=== PATIENT | female | born 1945 | race Caucasian/White ===

== ENCOUNTER 2017-04-26 13:15 | Emergency (ER) | payer MEDICARE, BC ==
[~2017-04-26] VITALS: Ht 157.5 cm; Wt 68.2 kg
[~2017-04-26 13:15] MED LIST: ACET65TA OR; BABY81CH OR; SYNT88TA PO; latanoprost OU
[2017-04-26] MEDS ORDERED: IBUP200C10 PO (13:26)
[2017-04-26] MEDS ORDERED: METOPROLOL TART 25 MG TABLET PO ONE (14:00)
[2017-04-26] MEDS ORDERED: ONDANSETRON 4MG/2ML VIAL (J2405) As Ordered ONE (14:02)
[2017-04-26 14:06] VITALS: BP 133/82
[2017-04-26 14:10] LABS: BASO # 0.1 K/mm3 (0.0-0.2); BASO % 0.7 % (0.0-1.0); EOS # 0.1 K/mm3 (0.0-0.50); EOS % 1.5 % (0.0-3.0); LARGE UNSTAINED CELL # 0.1 K/mm3 (0.0-0.4); LARGE UNSTAINED CELL % 1.3 % (0.0-4.0); LYMPH # 3.2 K/mm3 (1.5-4.5); LYMPH % 37.9 % (24.0-44.0); MEAN CORPUSCULAR HEMOGLOBIN 32.1 pg (27.0-33.0); MEAN CORPUSCULAR VOLUME 91.7 fl (80.0-96.0); MONO # 0.5 K/mm3 (0.0-0.8); MONO % 5.8 % (0.0-5.0); NEUTROPHILS # 4.3 K/mm3 (1.8-7.7); NEUTROPHILS % 52.8 % (36.0-66.0); PLATELET COUNT, AUTOMATED 356 k/mm3 (150-450); RED CELL DISTRIBUTION WIDTH 12.9 % (11.5-14.5); WHITE BLOOD COUNT 8.1 K/mm3 (4.0-10.0)
[2017-04-26] MEDS ORDERED: ONDANSETRON 4MG/2ML VIAL (J2405) IV ONE (14:15)
[2017-04-26 14:18] LABS: INR 1.04
[2017-04-26 14:21] LABS: ANION GAP 10 MEQ/L (8-16); BLOOD UREA NITROGEN 15 MG/DL (7-18); CARBON DIOXIDE LEVEL 27 MEQ/L (21-32); CHLORIDE LEVEL 102 MEQ/L (98-107); CREATININE FOR GFR 0.86 MG/DL (0.55-1.02); FREE T4 1.69 NG/DL (0.76-1.46); GLOMERULAR FILTRATION RATE > 60.0 (>39); GLUCOSE, FASTING 95 MG/DL (83-110); POTASSIUM SERUM 3.6 MEQ/L (3.5-5.1); SODIUM LEVEL 139 MEQ/L (136-145)
[2017-04-26] MEDS ORDERED: SYNT100T PO (14:37)
--- NOTE | 2017-04-26 15:16 | REP ---
REASON: Chest pain. COMPARISON: Multiple, the latest 02/02/2012, also portable. The technique utilized in obtaining the radiograph has magnified the cardiac silhouette and accentuated the interstitial markings. Cardiomediastinal silhouette is unchanged. The cardiac silhouette is accentuated by technique. Mild cardiomegaly is suspected. There is no change in the lung myeers. No acute patchy parenchymal opacities or pleural effusions have developed. IMPRESSION: Stable, chronic changes. Signed by Reji Krause DO 04/26/2017 03:26 P
[2017-04-26] MEDS ORDERED: ELIQ5TAB PO (15:29)
[2017-04-26] MEDS ORDERED: PROT1TAB2 PO (15:29)
[2017-04-26] MEDS ORDERED: ATEN25TA PO (15:29)
[2017-04-26] MEDS ORDERED: LEVO88TA3 PO (15:29)
[2017-04-26] MEDS ORDERED: ISOVUE-370 76% 100ML VIAL (Q9967) As Ordered ONE (15:50)
--- NOTE | 2017-04-26 16:23 | REP ---
Clinical: Chest pain. Technique: Axial contrast enhanced images from the thoracic inlet to the upper abdomen using 100 ml Isovue 370 intravenous contrast material with multiplanar re-formations. Findings: Satisfactory enhancement of the pulmonary vasculature is achieved, but subtle respiratory motion limits evaluation. No obvious, main or first order pulmonary embolus is appreciated. Thoracic aorta heart and pericardium appear normal. The lung meyers demonstrate chronic interstitial changes without consolidation, obvious nodule or mass lesion. No pleural effusion/reaction or pneumothorax. No adenopathy. Tracheobronchial tree is patent. Surrounding musculoskeletal structures demonstrate degenerative changes. Limited upper abdomen demonstrates normal bilateral adrenal glands and suggests left renal cysts. Impression: 1. No definite pulmonary embolus. 2. Normal thoracic aorta and heart/pericardium. 3. Chronic pleuroparenchymal changes without obvious acute process. Signed by Colby Bernard MD 04/26/2017 04:14 P
[2017-04-26] MEDS ORDERED: APIXABAN 5 MG TAB (ELIQUIS) PO ONE (16:30)
[2017-04-26 16:35] VITALS: BP 142/65
--- NOTE | 2017-04-27 07:31 | ECGEPIP ---
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
--- NOTE | 2017-04-28 07:17 | ECGEPIP ---
Stationary ECG Study [facility] - ED Test Date: 2017-04-26 Pat Name: GUILLE COYLE Department: Room: - Gender: F Rn Progressive Care: latia : 1945 Requested By: Tyron Constantino Order Number: [id number] Reading MD: Dali Ram Measurements Intervals [place] Rate: 178 P: [place]: 0 QRS: 78 QRSD: 200 T: 0 QT: 263 QTc: 453 Interpretive Statements PROBABLE ATRIAL FIBRILLATION RVR RIGHT BUNDLE BRANCH BLOCK Electronically Signed On 04-28-2017 7:17:18 EDT by Dali Ram
[2017-05-14] MEDS ORDERED: TYLE325C PO (10:37)
== END 2017-04-26 16:57 | disposition home or self-care (01) ==
LOC: M ED 13:15 → EDBD 13:15 → M ED 14:02
DX: I48.91 Unspecified atrial fibrillation (principal); T38.1X5A Adverse effect of thyroid hormones and substitutes, initial encounter; R11.2 Nausea with vomiting, unspecified; X58.XXXA Exposure to other specified factors, initial encounter; Y92.512 Supermarket, store or market as the place of occurrence of the external cause; E05.00 Thyrotoxicosis with diffuse goiter without thyrotoxic crisis or storm; I45.10 Unspecified right bundle-branch block; Z88.5 Allergy status to narcotic agent
CPT/HCPCS: 71010; 71275; 80048; 82550; 82553; 84439; 84443; 84484; 85025; 85379; 85610; 85730; 93005; 93041; 94760; 96374; 99285; J2405; Q9967

== ENCOUNTER 2017-05-18 13:33 | Day surgery (SDC) | payer MEDICARE, BC ==
[~2017-05-18] VITALS: Ht 157.5 cm; Wt 67.4 kg
[~2017-05-18 13:33] MED LIST changes: +ATEN25TA PO; +ELIQ5TAB PO; +IBUP200C10 PO; +LEVO88TA3 PO; +PROT1TAB2 PO; +SYNT100T PO; +TYLE325C PO
[2017-05-18] MEDS ORDERED: LACTATED RINGER'S 1000 ML IV ONE (14:00)
[2017-05-18] MEDS ORDERED: LR 1,000 ML IV ONE (14:00)
[2017-05-18] MEDS ORDERED: LR 1,000 ML IV SCH ×2 (14:00→18:00)
[2017-05-18] MEDS ORDERED: ceFAZolin SOD 1 GM in D5W MINI-BAG PLUS 50 ML IV ONE (14:00)
[2017-05-18] MEDS ORDERED: LIDOCAINE 1% SDV INJ 30 ML VIAL As Ordered ONE (15:07)
[2017-05-18] MEDS ORDERED: ISOVUE-300 61% 50ML VIAL (Q9967) As Ordered ONE (15:07)
[2017-05-18] MEDS ORDERED: VANCOMYCIN 1000 MG/20 ML VIAL (J3370) As Ordered ONE (15:07)
[2017-05-18] MEDS ORDERED: LIDOCAINE 2% INJ 100 MG/5 ML SDV (FOR ANES.) As Ordered ONE (15:50)
[2017-05-18] MEDS ORDERED: ONDANSETRON 4MG/2ML VIAL (J2405) As Ordered ONE (15:50)
[2017-05-18] MEDS ORDERED: fentaNYL 100 MCG/2 ML INJECTION (J3010) As Ordered ONE (15:50)
[2017-05-18] MEDS ORDERED: PROPOFOL 200 MG/20 ML VIAL As Ordered ONE ×2 (15:50→16:50)
[2017-05-18] MEDS ORDERED: MIDAZOLAM INJ 2 MG/2 ML VIAL (J2250) As Ordered ONE (15:50)
[2017-05-18] MEDS ORDERED: MUPIROCIN 2% OINT 22 GM TUBE As Ordered ONE (16:59)
[2017-05-18] MEDS ORDERED: PERCOCET 5MG/325MG TAB PO PRN (18:00)
[2017-05-18] MEDS ORDERED: ONDANSETRON 4MG/2ML VIAL (J2405) IV PRN (18:00)
[2017-05-18] MEDS ORDERED: fentaNYL 100 MCG/2 ML INJECTION (J3010) IV PRN (18:00)
[2017-05-18 18:30] VITALS: BP 190/78
--- NOTE | 2017-05-18 18:44 | RO ---
DATE OF PROCEDURE: 05/18/2017 PREPROCEDURE DIAGNOSIS: Sick sinus syndrome/tachycardia, bradycardia syndrome. POSTPROCEDURE DIAGNOSIS: Sick sinus syndrome/tachycardia, bradycardia syndrome. FINDINGS: Sick sinus syndrome/tachycardia, bradycardia syndrome. PROCEDURE: Implantation of dual-chamber pacemaker. SURGEON: Claudio Fernandes MD NON PROFIT DIRECTOR: None. ANESTHESIA: Lidocaine 1% local/monitored anesthetic care. SPECIMENS: None. ESTIMATED BLOOD LOSS: Less than 20 mL. No blood products replaced. No drains. No complications. DESCRIPTION OF PROCEDURE: The patient was prepped and draped over the left pectoral region. 3M Ioban film was applied. Lidocaine 1% was used for local anesthetic. A left subclavian venogram was performed using a mixture of 45 mL of nonionic contrast mixed with 15 mL of saline in a 60 mL syringe and a total of 15 mL of that volume was injected through a left antecubital vein and venogram was visualized of the left subclavian vein and axillary vein in real time, which was used in real time to gain percutaneous venous access into the extrathoracic portion of the subclavian vein under fluoroscopic guidance with a micropuncture needle. This was then guidewire exchanged for a guidewire that came with one of the 6-Belgian sheaths. Next, an incision approximately 2-1/2 inches in length was made approximately 1 cm below the entry site of the guidewire and approximately parallel to the left clavicle. The incision was made with a PEAK PlasmaBlade. The PEAK PlasmaBlade was then used to dissect through the fatty layer and the fibrous Roula's fascia. The prepectoral fascia was then from the fibrous Roula's fascia using blunt dissection using two fingers to form a pacemaker pocket in a caudal direction. Next, the guidewire was pulled through the skin into the incision site. next, I used a separate micropuncture needle to get a second venous access, this time with entry at the level of the pectoral muscle and access into the left subclavian vein using the first guidewire already in the vein as a fluoroscopic marker. Next, this was guidewire exchanged for a guidewire that came with the other 6-Belgian sheath. Next, a 6-Belgian peel-away sheath was placed over the more lateral of the guidewires and advanced into the vein and was used for vein access for the ventricle lead. The ventricle lead was placed into the right ventricle and secured somewhere likely low ventricular septum or possibly low RV free wall and was secured with a total of 15 turns. This position was found to be electrically and anatomically satisfactory and no diaphragm stimulation could be palpated on either side at 10 volts high output pacing. The ventricular lead was then secured with the supplied tie-down sleeve after removing the 6-Belgian sheath and secured to the pectoral muscle using two individual sutures consisting of #0 Ethibond. Next, the other 6-Belgian sheath was placed over the more medial of the guidewires and was used for vein access for the right atrial lead. The right atrial lead was placed under fluoroscopic guidance with the help of a preformed J-stylet into the right atrial appendage region and secured with a total of 13 turns. This position was found to electrically and anatomically satisfactory. The J-stylet was removed without difficulty. The atrial lead was then secured to the pectoral muscle using the supplied tie-down sleeves using two individual sutures consisting of #0 Ethibond. Next, another #0 Ethibond suture was placed to the pectoral muscle to serve as a tie-down for the pacemaker pulse generator. The free terminal pins of the atrial and ventricular leads were placed into their respective ports in the header of the pacemaker pulse generator and each one was tightened by tightening the set screws using the hex screwdriver. Next, the excess lead material was coiled underneath the pacemaker pulse generator and placed along with the pacemaker pulse generator into the pacemaker pocket with the pulse generator on top and the excess lead material below. The pulse generator was then secured to the pectoral muscle with the previously placed #0 Ethibond suture to secure it to the pectoral muscle. The deep layer was closed using individual sutures consisting of #2-0 Vicryl. A few additional #4-0 Vicryl sutures were used to help approximate the more superficial layer. Next, the skin was closed using susan. This was followed by covering the incision line with Bactroban ointment and then application of a pressure dressing applied with foam tape. The patient tolerated the procedure well without any immediate complications. The pacemaker pulse generator implanted was a HRBoss [place]ora 8 DR-T with reference number [id number] and serial number [id number]. The right ventricle lead implanted was a [employer] [facility] Sol[place] S 53 with reference number [id number] and serial number [id number]. Final testing in the operating room for the right ventricle lead showed a capture threshold of 0.6 volts at 0.4 ms with R wave amplitude of 11.6 mV and lead impedance of 799 ohms. The right atrial lead implanted was a [employer] [facility] Solia S 45 with reference number [id number] and serial number [id number]. Final testing in the operating room for the right atrial lead showed a capture threshold of 1.0 volts at 0.4 ms with P wave amplitude of 2.9 mV and lead impedance of 526 ohms. These were all tested in bipolar configuration. Copy To: Dr. Connor Mandel
[2017-05-18 19:00] VITALS: BP 156/70
--- NOTE | 2017-05-18 19:34 | REP ---
PORTABLE CHEST: AP portable view of the chest is performed and compared to prior study of 04/26/2017. There is placement of a left dual-lead pace maker with atrial and ventricular leads apparently in good position. There is no pneumothorax. There is mild cardiomegaly. There is some calcification of the thoracic aorta. Scattered interstitial fibrotic changes are seen of the lungs. IMPRESSION: Chronic fibrotic changes. Left dual lead pace maker placed with no pneumothorax. Signed by Hilario Caraballo MD 05/18/2017 08:20 P
--- NOTE | 2017-05-18 19:35 | REP ---
C-ARM view chest: A C-ARM view of the chest is performed during placement of a dual lead pace maker. Atrial and ventricular leads appear to be in good position. 3 minutes and 48 seconds fluoroscopic time utilized. Signed by Hilario Caraballo MD 05/18/2017 08:21 P
[2017-05-18] MEDS ORDERED: SLF 3 ML SYR IV PRN (20:15)
[2017-05-18] MEDS: ASCORBIC ACID 250 MG TAB PO SCH (20:45)
[2017-05-18] MEDS: ATENOLOL 25 MG TAB PO SCH (20:45)
[2017-05-18] MEDS: ACETAMINOPHEN TAB 650MG DOSE (2X325MG) PO PRN (20:45)
[2017-05-18] MEDS: SLF 3 ML SYR IV SCH (20:46)
[2017-05-18 20:54] VITALS: BP 174/88
[2017-05-18 21:57] VITALS: BP 174/78
--- NOTE | 2017-05-18 22:44 | ECGEPIP ---
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 Electronically Signed On 05-18-2017 22:44:32 EDT by Claudio Fernandes
[2017-05-18 23:12] VITALS: BP 141/67
[2017-05-19] MEDS: ACETAMINOPHEN TAB 650MG DOSE (2X325MG) PO PRN (02:13)
[2017-05-19 04:36] VITALS: BP 144/67
[2017-05-19] MEDS ORDERED: LEVOTHYROXINE 88MCG TABLET (0.088 MG) PO SCH (06:00)
[2017-05-19] MEDS: SLF 3 ML SYR IV SCH (06:27)
[2017-05-19 08:00] VITALS: BP 142/65
[2017-05-19 08:57] VITALS: BP 142/65
[2017-05-19] MEDS: ATENOLOL 25 MG TAB PO SCH (08:57)
[2017-05-19] MEDS: ASCORBIC ACID 250 MG TAB PO SCH (08:57)
[2017-05-19] MEDS ORDERED: PANTOPRAZOLE 40MG TAB (PROTONIX) PO SCH (09:00)
[2017-05-19] MEDS ORDERED: PANT40TA2 PO (10:45)
[2017-05-19] MEDS ORDERED: ATEN25TA PO (10:45)
[2017-05-19] MEDS ORDERED: ELIQ5TAB PO (10:45)
[2017-05-19] MEDS ORDERED: PROT1TAB2 PO (10:45)
--- NOTE | 2017-05-19 13:25 | REP ---
TWO VIEW CHEST: Two views of the chest are performed and compared to prior study of 05/18/2017 as well as other prior exams. There is mild bibasilar interstitial fibrotic change. There is no acute infiltrate or pneumothorax. Left dual lead pacemaker appears to be in good position. Heart appears slightly enlarged. Mediastinal silhouette is unremarkable. There are mild degenerative changes of the spine. IMPRESSION: Left dual lead pacemaker. No acute pulmonary disease. Signed by Hilario Caraballo MD 05/19/2017 03:21 P
== END 2017-05-19 12:41 | disposition home or self-care (01) ==
LOC: M SDC 13:33 → M PCU 18:18 → M SDC 05-19 12:41
PROVIDERS: ATTEND Internal Medicine Cardiovascular Disease
DX: I49.5 Sick sinus syndrome (principal); I48.0 Paroxysmal atrial fibrillation; R07.2 Precordial pain; I45.19 Other right bundle-branch block; I44.0 Atrioventricular block, first degree; E03.9 Hypothyroidism, unspecified; M50.30 Other cervical disc degeneration, unspecified cervical region; K21.9 Gastro-esophageal reflux disease without esophagitis; E66.3 Overweight; Z68.26 Body mass index [BMI] 26.0-26.9, adult; Z79.899 Other long term (current) drug therapy; Z79.01 Long term (current) use of anticoagulants; Z88.5 Allergy status to narcotic agent; Z88.8 Allergy status to other drugs, medicaments and biological substances
CPT/HCPCS: 33208; 71010; 71020; 76000; 93005; C1769; C1785; C1898; J0690; J2250; J2405; J3010; Q9967

== ENCOUNTER → 2018-01-25 | Outpatient (CLI) | payer MEDICARE, BC ==
[2018-01-25 10:11] LABS: FREE T4 1.54 NG/DL (0.76-1.46)
== END ==
LOC: M LAB 08:55
DX: E03.9 Hypothyroidism, unspecified (principal)
CPT/HCPCS: 84443

== ENCOUNTER 2018-03-20 08:09 | Emergency (ER) | payer MEDICARE, BC ==
[2018-03-20 09:07] LABS: BASO % 0.4 % (0.0-1.0); EOS # 0.1 10^3/uL (0.0-0.50); EOS % 2.8 % (0.0-3.0); HEMATOCRIT 38.1 % (36.0-47.0); HEMOGLOBIN 12.8 g/dl (12.0-15.5); IMMATURE GRANULOCYTE % 0.2 % (0-3.0); LYMPH # 0.7 10^3/uL (1.5-4.5); LYMPH % 13.6 % (24.0-44.0); MEAN CORPUSCULAR HEMOGLOBIN 29.8 pg (27.0-33.0); MEAN CORPUSCULAR HGB CONC 33.6 g/dl (32.0-36.5); MEAN CORPUSCULAR VOLUME 88.6 fl (80.0-96.0); MONO # 0.5 10^3/uL (0.0-0.8); NEUTROPHILS # 3.7 10^3/uL (1.8-7.7); PLATELET COUNT, AUTOMATED 297 10^3/uL (150-450); RED CELL DISTRIBUTION WIDTH 13.5 % (11.5-14.5); WHITE BLOOD COUNT 5.1 10^3/uL (4.0-10.0)
[2018-03-20 09:27] LABS: ALBUMIN 3.4 GM/DL (3.2-5.2); ALBUMIN/GLOBULIN RATIO 0.79 (1.00-1.93); ALKALINE PHOSPHATASE 93 U/L (45-117); ALT/SGPT 15 U/L (12-78); ANION GAP 9 MEQ/L (8-16); AST/SGOT 20 U/L (7-37); BILIRUBIN,DIRECT 0.1 MG/DL (0.0-0.2); BILIRUBIN,TOTAL 0.5 MG/DL (0.2-1.0); BLOOD UREA NITROGEN 12 MG/DL (7-18); CALCIUM LEVEL 8.9 MG/DL (8.8-10.2); CARBON DIOXIDE LEVEL 27 MEQ/L (21-32); CHLORIDE LEVEL 106 MEQ/L (98-107); CPK CREATINE PHOSPHOKINASE 44 U/L (26-192); CREATININE FOR GFR 0.68 MG/DL (0.55-1.30); GLOMERULAR FILTRATION RATE > 60.0 (>39); GLUCOSE, FASTING 109 MG/DL (70-100); LIPASE 86 U/L (73-393); POTASSIUM SERUM 3.7 MEQ/L (3.5-5.1); SODIUM LEVEL 142 MEQ/L (136-145); TOTAL PROTEIN 7.7 GM/DL (6.4-8.2); TROPONIN I < 0.02 NG/ML (< 0.10)
[2018-03-20 09:33] LABS: CK-MB VALUE MASS < 1.0 NG/ML (<3.6); MB/CK RELATIVE INDEX 2.27 (< OR =4); NT-PRO BNP 111 PG/ML (<125)
== END 2018-03-20 11:06 | disposition home or self-care (01) ==
LOC: M ED 08:09
DX: R00.2 Palpitations (principal); I48.91 Unspecified atrial fibrillation; I45.19 Other right bundle-branch block; E03.9 Hypothyroidism, unspecified; M19.90 Unspecified osteoarthritis, unspecified site; Z95.0 Presence of cardiac pacemaker; I51.7 Cardiomegaly; Z79.01 Long term (current) use of anticoagulants; Z79.899 Other long term (current) drug therapy; Z88.5 Allergy status to narcotic agent
CPT/HCPCS: 71045

== ENCOUNTER → 2018-03-27 | Outpatient (REF) | payer MEDICARE, BC ==
[2018-03-27 21:48] LABS: ANION GAP 6 MEQ/L (8-16); BLOOD UREA NITROGEN 12 MG/DL (7-18); CALCIUM LEVEL 9.3 MG/DL (8.8-10.2); CARBON DIOXIDE LEVEL 29 MEQ/L (21-32); CHLORIDE LEVEL 103 MEQ/L (98-107); CREATININE FOR GFR 0.66 MG/DL (0.55-1.30); FREE T3 2.7 PG/ML (2.2-4.0); FREE T4 1.58 NG/DL (0.76-1.46); GLOMERULAR FILTRATION RATE > 60.0 (>39); GLUCOSE, FASTING 80 MG/DL (70-100); MAGNESIUM LEVEL 2.4 MG/DL (1.8-2.4); POTASSIUM SERUM 4.2 MEQ/L (3.5-5.1); SODIUM LEVEL 138 MEQ/L (136-145)
== END ==
LOC: M SFHCCLAY 10:56
DX: I48.0 Paroxysmal atrial fibrillation (principal); R00.2 Palpitations
CPT/HCPCS: 83735

== ENCOUNTER 2018-07-02 15:01 | Emergency (ER) | payer MEDICARE, BC ==
[2018-07-02 15:46] LABS: BASO % 0.5 % (0.0-1.0); EOS # 0.1 10^3/uL (0.0-0.50); EOS % 1.4 % (0.0-3.0); HEMOGLOBIN 14.1 g/dl (12.0-15.5); IMMATURE GRANULOCYTE % 0.2 % (0-3.0); LYMPH # 2.6 10^3/uL (1.5-4.5); LYMPH % 40.5 % (24.0-44.0); MEAN CORPUSCULAR HEMOGLOBIN 29.9 pg (27.0-33.0); MEAN CORPUSCULAR HGB CONC 34.4 g/dl (32.0-36.5); MONO # 0.5 10^3/uL (0.0-0.8); MONO % 8.4 % (0.0-5.0); NEUTROPHILS # 3.1 10^3/uL (1.8-7.7); PLATELET COUNT, AUTOMATED 334 10^3/uL (150-450); RED BLOOD COUNT 4.71 10^6/uL (4.00-5.40); RED CELL DISTRIBUTION WIDTH 14.9 % (11.5-14.5); WHITE BLOOD COUNT 6.4 10^3/uL (4.0-10.0)
[2018-07-02 15:56] LABS: INR 1.28; PARTIAL THROMBOPLASTIN TIME 35.3 SECONDS (25.4-37.6); PROTHROMBIN TIME 16.2 SECONDS (12.1-14.4)
[2018-07-02 15:58] LABS: ALBUMIN 4.1 GM/DL (3.2-5.2); ALBUMIN/GLOBULIN RATIO 1.03 (1.00-1.93); ALKALINE PHOSPHATASE 67 U/L (45-117); ALT/SGPT 19 U/L (12-78); ANION GAP 15 MEQ/L (8-16); AST/SGOT 16 U/L (7-37); BILIRUBIN,DIRECT 0.1 MG/DL (0.0-0.2); BLOOD UREA NITROGEN 11 MG/DL (7-18); CALCIUM LEVEL 9.8 MG/DL (8.8-10.2); CARBON DIOXIDE LEVEL 20 MEQ/L (21-32); CHLORIDE LEVEL 106 MEQ/L (98-107); CPK CREATINE PHOSPHOKINASE 71 U/L (26-192); GLOMERULAR FILTRATION RATE > 60.0 (>39); GLUCOSE, FASTING 111 MG/DL (70-100); MAGNESIUM LEVEL 2.4 MG/DL (1.8-2.4); PHOSPHORUS LEVEL 2.1 MG/DL (2.5-4.9); POTASSIUM SERUM 3.1 MEQ/L (3.5-5.1); SODIUM LEVEL 141 MEQ/L (136-145); TOTAL PROTEIN 8.1 GM/DL (6.4-8.2); TROPONIN I < 0.02 NG/ML (< 0.10)
[2018-07-02 16:11] LABS: BILIRUBIN,TOTAL 0.5 MG/DL (0.2-1.0); CK-MB VALUE MASS < 1.0 NG/ML (<3.6); FREE T4 1.63 NG/DL (0.76-1.46)
[2018-07-02] MEDS: ONDANSETRON 4MG/2ML VIAL (J2405) IV (16:12)
[2018-07-02] MEDS: NS 500 ML IV (16:13)
[2018-07-02] MEDS: POTASSIUM CHLORIDE 10 MEQ SR TABLET PO (16:23)
== END 2018-07-02 17:35 | disposition home or self-care (01) ==
LOC: M ED 15:01
DX: K29.00 Acute gastritis without bleeding (principal); K52.9 Noninfective gastroenteritis and colitis, unspecified; I10 Essential (primary) hypertension; I25.10 Atherosclerotic heart disease of native coronary artery without angina pectoris; I48.91 Unspecified atrial fibrillation; Z95.0 Presence of cardiac pacemaker; Z79.899 Other long term (current) drug therapy; Z79.01 Long term (current) use of anticoagulants; Z79.890 Hormone replacement therapy; Z88.5 Allergy status to narcotic agent; Z88.8 Allergy status to other drugs, medicaments and biological substances
CPT/HCPCS: J2405

== ENCOUNTER → 2018-08-02 | Outpatient (REF) | payer MEDICARE, BC ==
[2018-08-02 16:43] LABS: HEMATOCRIT 42.2 % (36.0-47.0); HEMOGLOBIN 14.3 g/dl (12.0-15.5); MEAN CORPUSCULAR HEMOGLOBIN 30.9 pg (27.0-33.0); MEAN CORPUSCULAR HGB CONC 33.9 g/dl (32.0-36.5); MEAN CORPUSCULAR VOLUME 91.1 fl (80.0-96.0); PLATELET COUNT, AUTOMATED 357 10^3/uL (150-450); RED BLOOD COUNT 4.63 10^6/uL (4.00-5.40); RED CELL DISTRIBUTION WIDTH 14.3 % (11.5-14.5); WHITE BLOOD COUNT 6.5 10^3/uL (4.0-10.0)
[2018-08-02 17:00] LABS: ANION GAP 6 MEQ/L (8-16); BLOOD UREA NITROGEN 13 MG/DL (7-18); CALCIUM LEVEL 10.2 MG/DL (8.8-10.2); CARBON DIOXIDE LEVEL 30 MEQ/L (21-32); CHLORIDE LEVEL 103 MEQ/L (98-107); CREATININE FOR GFR 0.64 MG/DL (0.55-1.30); FREE T4 1.18 NG/DL (0.76-1.46); GLOMERULAR FILTRATION RATE > 60.0 (>39); GLUCOSE, FASTING 86 MG/DL (70-100); SODIUM LEVEL 139 MEQ/L (136-145)
== END ==
LOC: M SFHCCLAY 12:02
DX: E89.0 Postprocedural hypothyroidism (principal); R53.82 Chronic fatigue, unspecified
CPT/HCPCS: 84443

== ENCOUNTER → 2018-12-25 | Outpatient (CLI) | payer MEDICARE, BC ==
[~2018-12-25] MED LIST changes: -IBUP200C10 PO; +IBUP200C25 PO; +K-TA1TAB PO; +MULTCAP8 PO; +PANT40TA3 PO; +ZOFR4TAB14 PO
[2018-12-25 11:06] LABS: HEMATOCRIT 44.1 % (36.0-47.0); HEMOGLOBIN 14.7 g/dl (12.0-15.5); MEAN CORPUSCULAR HEMOGLOBIN 31.3 pg (27.0-33.0); MEAN CORPUSCULAR HGB CONC 33.3 g/dl (32.0-36.5); PLATELET COUNT, AUTOMATED 348 10^3/uL (150-450); RED BLOOD COUNT 4.69 10^6/uL (4.00-5.40); WHITE BLOOD COUNT 6.7 10^3/uL (4.0-10.0)
[2018-12-25 11:28] LABS: ERYTHROCYTE SEDIMENTATION RATE 5 mm/hr (0-30)
[2018-12-25 11:34] LABS: ALBUMIN 4.2 GM/DL (3.2-5.2); ALT/SGPT 16 U/L (12-78); BILIRUBIN,TOTAL 0.6 MG/DL (0.2-1.0); BLOOD UREA NITROGEN 14 MG/DL (7-18); CARBON DIOXIDE LEVEL 29 MEQ/L (21-32); CHLORIDE LEVEL 102 MEQ/L (98-107); CPK CREATINE PHOSPHOKINASE 45 U/L (26-192); CREATININE FOR GFR 0.67 MG/DL (0.55-1.30); FREE T4 1.33 NG/DL (0.76-1.46); GLOMERULAR FILTRATION RATE > 60.0 (>39); GLUCOSE, FASTING 89 MG/DL (70-100); SODIUM LEVEL 138 MEQ/L (136-145); TOTAL PROTEIN 7.7 GM/DL (6.4-8.2)
== END ==
LOC: M LAB 10:16
PROVIDERS: ATTEND Family Medicine
DX: E03.9 Hypothyroidism, unspecified (principal); M79.10 Myalgia, unspecified site

== ENCOUNTER → 2018-12-30 | Outpatient (CLI) | payer MEDICARE, BC ==
--- NOTE | 2018-12-30 11:43 | REP ---
PA and lateral chest: Comparisons are the PA and lateral chest A 05/19/2017, PA and lateral chest seven 12/26/[address] dated 04/26/2017. The lung meyers are clear but again appear hyperinflated, unchanged. Cardiac size is mildly enlarged, unchanged. There is a dual-chamber pacemaker, unchanged from 05/19/2017. The central adriel appear enlarged. Upon review of the comparison CT, the pulmonary trunk measures 32 mm in diameter. This is compatible with pulmonary hypertension. There is demineralization and mild kyphosis. Impression: There are no acute cardiopulmonary findings. Pacemaker. Chronic hyperinflation. Enlarged central adriel compatible with pulmonary hypertension. The pulmonary trunk measures 32 mm transverse diameter on the 04/26/2017 CT. This is also compatible with pulmonary hypertension. Electronically Signed by Hilario Rios MD 12/30/2018 11:35 A
== END ==
LOC: M SMT 10:31
PROVIDERS: ATTEND Internal Medicine Cardiovascular Disease
DX: R06.00 Dyspnea, unspecified (principal); Z95.0 Presence of cardiac pacemaker; I27.20 Pulmonary hypertension, unspecified

== ENCOUNTER → 2019-02-06 | Outpatient (REF) | payer MEDICARE, BC ==
[2019-02-06 17:06] LABS: FREE T4 1.29 NG/DL (0.76-1.46); THYROID STIMULATING HORMONE 2.74 uIU/ML (0.358-3.740)
== END ==
LOC: M SFHCCLAY 13:33
PROVIDERS: ATTEND Family Medicine
DX: E03.9 Hypothyroidism, unspecified (principal); M79.10 Myalgia, unspecified site
CPT/HCPCS: 84439; 84443; G0463

== ENCOUNTER → 2019-07-24 | Outpatient (CLI) | payer MEDICARE, BC ==
[~2019-07-24] MED LIST changes: +XARE10TA PO
[2019-07-24 17:30] LABS: APPEARANCE, URINE CLOUDY (CLEAR); BACTERIA, URINE AUTO 1+ (NEGATIVE); BILIRUBIN, URINE AUTO NEGATIVE (NEGATIVE); BLOOD, URINE BLOOD 3+ (NEGATIVE); COLOR, URINE YELLOW (YELLOW); GLUCOSE, URINE (UA) AUTO NEGATIVE (NEGATIVE); KETONE, URINE AUTO NEGATIVE (NEGATIVE); LEUKOCYTE ESTERASE, URINE AUTO TRACE (NEGATIVE); NITRITE, URINE AUTO NEGATIVE (NEGATIVE); PROTEIN, URINE AUTO NEGATIVE (NEGATIVE); RBC, URINE AUTO 1 /HPF (0-3); SPECIFIC GRAVITY URINE AUTO 1.004 (1.002-1.035); SQUAMOUS EPITHELIAL CELL UR AU 1 /HPF (0-6); UROBILINOGEN, URINE AUTO 0.2 mg/dL (0.0-2.0); WBC, URINE AUTO 2 /HPF (0-3)
[2019-07-24 17:48] LABS: BLOOD UREA NITROGEN 8 MG/DL (7-18); CALCIUM LEVEL 9.7 MG/DL (8.8-10.2); CARBON DIOXIDE LEVEL 29 MEQ/L (21-32); CHLORIDE LEVEL 103 MEQ/L (98-107); CREATININE FOR GFR 0.68 MG/DL (0.55-1.30); GLOMERULAR FILTRATION RATE > 60.0 (>39); GLUCOSE, FASTING 92 MG/DL (70-100); POTASSIUM SERUM 3.9 MEQ/L (3.5-5.1); SODIUM LEVEL 140 MEQ/L (136-145)
[2019-07-24 17:53] LABS: HEMATOCRIT 45.1 % (36.0-47.0); HEMOGLOBIN 14.8 g/dl (12.0-15.5); MEAN CORPUSCULAR HEMOGLOBIN 31.2 pg (27.0-33.0); MEAN CORPUSCULAR HGB CONC 32.8 g/dl (32.0-36.5); MEAN CORPUSCULAR VOLUME 95.1 fl (80.0-96.0); PLATELET COUNT, AUTOMATED 375 10^3/uL (150-450); RED BLOOD COUNT 4.74 10^6/uL (4.00-5.40); WHITE BLOOD COUNT 6.5 10^3/uL (4.0-10.0)
== END ==
LOC: M SMT 14:19
PROVIDERS: ATTEND Internal Medicine Cardiovascular Disease
DX: R53.83 Other fatigue (principal); I48.0 Paroxysmal atrial fibrillation; R31.9 Hematuria, unspecified

== ENCOUNTER → 2019-07-29 | Outpatient (REF) | payer MEDICARE, BC ==
[2019-07-29 17:18] LABS: FREE T4 1.34 NG/DL (0.76-1.46); THYROID STIMULATING HORMONE 1.59 uIU/ML (0.358-3.740)
== END ==
LOC: M SFHCCLAY 12:28
PROVIDERS: ATTEND Family Medicine
DX: E03.9 Hypothyroidism, unspecified (principal)
CPT/HCPCS: 81002; 84439; 84443; 90682; G0008

== ENCOUNTER → 2019-07-31 | Outpatient (CLI) | payer MEDICARE, BC ==
[~2019-07-31] MED LIST changes: +ISOVUE-370 76% 100ML VIAL (Q9967) As Ordered ONE
--- NOTE | 2019-07-31 19:31 | REP ---
CT of the abdomen and pelvis without and with IV contrast, CT urogram protocol: Comparison is 01/04/2011. There are no right renal calculi. However, there is a 3 mm calculus in the distal right ureter approximate 4 cm above the urinary bladder, not present previously. This calculus appears nonobstructive. There is no right hydroureter or hydronephrosis. There is no right perinephric stranding. There are no bladder calculi. There is a bladder diverticulum posterolaterally on the right, unchanged. There are nonobstructive calculi at the lower pole of the left kidney. There are no left ureteral calculi. The left renal calyces and pelvis are dilated, this may be a chronic change. There are phleboliths in the pelvis on the left near the distal left ureter but not within the left ureter. There are two calcifications along the anterior inferior wall of the bladder. They be phleboliths of the may be adherent bladder wall calculi. There is chronic renal cortical scarring of the left kidney. There are renal cysts bilaterally. There are no solid renal masses. No bladder masses are identified. The visualized lung meyers are unremarkable. The hepatic parenchyma, gallbladder, pancreas, spleen, adrenals, abdominal aorta, bowel and mesentery are unremarkable. Pelvis: There is no adenopathy or ascites. The pelvic bowel loops are unremarkable. Impression: There is a 3 ml nonobstructive calculus in the distal right ureter as an interval change. There is no right hydroureter or hydronephrosis. There are nonobstructive calculi in the left renal lower pole. There is chronic cortical scarring of the left kidney. There is chronic left kidney calyceal dilatation. There are no left ureteral calculi. There are two calculi along the anterior inferior wall of the bladder, unchanged, phleboliths versus adherent bladder calculi. No bladder wall masses are identified. There is a bladder diverticulum posterior laterally on the right, unchanged. Electronically Signed by Hilario Rios MD 07/31/2019 07:23 P
== END ==
LOC: M RAD 16:43
PROVIDERS: ATTEND Family Medicine
DX: R10.31 Right lower quadrant pain (principal); R31.0 Gross hematuria; N20.1 Calculus of ureter; N32.3 Diverticulum of bladder; N20.0 Calculus of kidney; N28.1 Cyst of kidney, acquired
CPT/HCPCS: 74178; Q9967

== ENCOUNTER 2019-08-05 11:41 | Emergency (ER) | payer MEDICARE, BC ==
[~2019-08-05] VITALS: Ht 162.6 cm; Wt 62.7 kg
[~2019-08-05 11:41] MED LIST changes: -ISOVUE-370 76% 100ML VIAL (Q9967) As Ordered ONE; -XARE10TA PO
[2019-08-05] MEDS ORDERED: XARE10TA PO (11:59)
[2019-08-05 12:59] LABS: BASO % 0.3 % (0.0-1.0); EOS # 0.1 10^3/uL (0.0-0.5); EOS % 0.9 % (0.0-3.0); HEMATOCRIT 44.1 % (36.0-47.0); LYMPH # 1.4 10^3/uL (1.5-5.0); LYMPH % 20.2 % (24.0-44.0); MEAN CORPUSCULAR HEMOGLOBIN 31.9 pg (27.0-33.0); MEAN CORPUSCULAR VOLUME 93.8 fl (80.0-96.0); MONO # 0.5 10^3/uL (0.0-0.8); MONO % 7.8 % (0.0-5.0); NEUTROPHILS # 4.8 10^3/uL (1.5-8.5); NEUTROPHILS % 70.5 % (36.0-66.0); PLATELET COUNT, AUTOMATED 384 10^3/uL (150-450); WHITE BLOOD COUNT 6.8 10^3/uL (4.0-10.0)
[2019-08-05] MEDS ORDERED: NS 500 ML IV ONE (13:00)
[2019-08-05 13:07] LABS: INR 1.11
[2019-08-05 13:08] LABS: PARTIAL THROMBOPLASTIN TIME 30.8 SECONDS (25.0-38.4)
[2019-08-05 13:28] LABS: ALBUMIN 3.8 GM/DL (3.2-5.2); ALT/SGPT 14 U/L (12-78); BILIRUBIN,DIRECT 0.1 MG/DL (0.0-0.2); BILIRUBIN,TOTAL 0.5 MG/DL (0.2-1.0); BLOOD UREA NITROGEN 9 MG/DL (7-18); CALCIUM LEVEL 9.5 MG/DL (8.8-10.2); CARBON DIOXIDE LEVEL 29 MEQ/L (21-32); CHLORIDE LEVEL 103 MEQ/L (98-107); CK-MB VALUE MASS < 1.0 NG/ML (<3.6); CPK CREATINE PHOSPHOKINASE 49 U/L (26-192); CREATININE FOR GFR 0.79 MG/DL (0.55-1.30); FREE T4 1.26 NG/DL (0.76-1.46); GLOMERULAR FILTRATION RATE > 60.0 (>39); GLUCOSE, FASTING 93 MG/DL (70-100); LIPASE 83 U/L (73-393); MB/CK RELATIVE INDEX 2.04 (< OR =4); SODIUM LEVEL 140 MEQ/L (136-145); TOTAL PROTEIN 7.5 GM/DL (6.4-8.2); TROPONIN I < 0.02 NG/ML (< 0.10)
--- NOTE | 2019-08-05 14:00 | REP ---
Renal ultrasound: Comparison is the abdomen/pelvis CT dated 07/31/2019. The right kidney measures 11.0 of 5.3 x 4.4 cm and is normal size. Left kidney measures 8.7 x 4.4-0.7 cm and is atrophic size. There are bilateral hyperechoic renal cortices, compatible with medical renal disease. There is very mild right hydronephrosis. There is mild left hydronephrosis. There are multiple echogenic foci with acoustic shadowing in the left kidney compatible with renal calculi. There are no solid or cystic renal masses. Bladder: No right or left ureteral jet is identified with color Doppler ultrasound scanning for 5 minutes. Impression: Very mild right hydronephrosis. Mild left hydronephrosis. Multiple left renal calculi. No ureteral jets are identified after scanning for 5 minutes. Electronically Signed by Hilario Rios MD 08/05/2019 01:52 P
--- NOTE | 2019-08-05 14:03 | REP ---
CHEST, TWO VIEWS: Two views of the chest are performed and compared to a prior study of 12/30/2018. There is no acute infiltrate. There is mild cardiomegaly. There is calcification of the thoracic aorta. Mediastinal silhouette is unchanged. Left pacemaker is again noted. There are degenerative changes of the spine. IMPRESSION: No acute pulmonary disease. Electronically Signed by Hilario Caraballo MD 08/06/2019 04:14 P
[2019-08-05 14:16] VITALS: BP 166/74
--- NOTE | 2019-08-05 20:38 | ECGEPIP ---
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
== END 2019-08-05 14:57 | disposition home or self-care (01) ==
LOC: EDBD 11:41 → M ED 11:41
DX: R55 Syncope and collapse (principal); N13.30 Unspecified hydronephrosis; N20.1 Calculus of ureter; E03.9 Hypothyroidism, unspecified; H40.9 Unspecified glaucoma; Z95.0 Presence of cardiac pacemaker; Z88.8 Allergy status to other drugs, medicaments and biological substances; Z88.5 Allergy status to narcotic agent; Z79.899 Other long term (current) drug therapy

== ENCOUNTER → 2020-04-07 | Outpatient (REF) | payer MEDICARE, BC ==
[~2020-04-07] MED LIST changes: +MI-A80CH PO; +ONDA8TAB10 PO; +XARE10TA PO; +XARE15TA PO
[2020-04-08 11:28] LABS: HEMATOCRIT 43.9 % (36.0-47.0); HEMOGLOBIN 14.3 g/dl (12.0-15.5); MEAN CORPUSCULAR HEMOGLOBIN 29.7 pg (27.0-33.0); MEAN CORPUSCULAR HGB CONC 32.6 g/dl (32.0-36.5); MEAN CORPUSCULAR VOLUME 91.3 fl (80.0-96.0); PLATELET COUNT, AUTOMATED 343 10^3/uL (150-450); RED BLOOD COUNT 4.81 10^6/uL (4.00-5.40); WHITE BLOOD COUNT 6.7 10^3/uL (4.0-10.0)
[2020-04-08 11:53] LABS: ALT/SGPT 17 U/L (12-78); BILIRUBIN,TOTAL 0.5 MG/DL (0.2-1.0); BLOOD UREA NITROGEN 11 MG/DL (7-18); CALCIUM LEVEL 9.4 MG/DL (8.8-10.2); CARBON DIOXIDE LEVEL 29 MEQ/L (21-32); CHLORIDE LEVEL 106 MEQ/L (98-107); CREATININE FOR GFR 0.67 MG/DL (0.55-1.30); FREE T4 1.45 NG/DL (0.76-1.46); GLOMERULAR FILTRATION RATE > 60.0 (>39); GLUCOSE, FASTING 86 MG/DL (70-100); SODIUM LEVEL 141 MEQ/L (136-145); TOTAL PROTEIN 7.7 GM/DL (6.4-8.2)
== END ==
LOC: M SFHCCLAY 13:59
PROVIDERS: ATTEND Family Medicine
DX: E03.9 Hypothyroidism, unspecified (principal); R11.0 Nausea; I48.0 Paroxysmal atrial fibrillation
CPT/HCPCS: 80053; 84439; 84443; 85027; G0463

== ENCOUNTER 2020-04-15 13:01 | Emergency (ER) | payer MEDICARE, BC ==
[~2020-04-15] VITALS: Ht 160 cm; Wt 61.4 kg
[~2020-04-15 13:01] MED LIST changes: -MI-A80CH PO; -ONDA8TAB10 PO; -XARE15TA PO
[2020-04-15 13:29] LABS: HEMATOCRIT 41.9 % (36.0-47.0); HEMOGLOBIN 13.8 g/dl (12.0-15.5); MEAN CORPUSCULAR HEMOGLOBIN 29.6 pg (27.0-33.0); MEAN CORPUSCULAR HGB CONC 32.9 g/dl (32.0-36.5); MEAN CORPUSCULAR VOLUME 89.9 fl (80.0-96.0); PLATELET COUNT, AUTOMATED 327 10^3/uL (150-450); RED BLOOD COUNT 4.66 10^6/uL (4.00-5.40)
[2020-04-15] MEDS ORDERED: XARE15TA PO (13:48)
[2020-04-15] MEDS ORDERED: ONDA8TAB10 PO (13:48)
[2020-04-15] MEDS ORDERED: MI-A80CH PO (13:48)
[2020-04-15 14:11] LABS: CK-MB VALUE MASS < 1.0 NG/ML (<3.6); CPK CREATINE PHOSPHOKINASE 50 U/L (26-192); TROPONIN I < 0.02 NG/ML (< 0.10)
--- NOTE | 2020-04-15 14:54 | REP ---
CT BRAIN WITHOUT CONTRAST: HISTORY: Neurologic symptoms. Comparison head CT study February 03, 2012. 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 The patient is edentulous. Bony calvarium is intact on axial CT images. There is mild vascular calcification in the distal vertebral basilar system. There is mild generalized volume loss on soft-tissue window settings. Caraballo-white differentiation pattern is normal above below the tentorium. There is no evidence of intracranial hemorrhage. No mass, acute infarction, or midline shift is seen. IMPRESSION: Mild vascular calcification and generalized volume loss. No acute intracranial abnormality. Electronically Signed by Aniket Olivarez MD 04/15/2020 03:04 P
[2020-04-15 15:33] VITALS: BP 140/65
--- NOTE | 2020-04-15 18:34 | ECGEPIP ---
[facility] - ED Test Date: 2020-04-15 Pat Name: GUILLE COYLE Department: Room: - Gender: Female Director Voice: brian FITZGERALDB: 1945 Requested By: Tyron Constantino Order Number: [id number] Reading MD: Dali Ram Measurements Intervals [place] Rate: 71 P: 60 [place]: 234 QRS: 18 QRSD: 148 T: 57 QT: 410 QTc: 447 Interpretive Statements ELECTRONIC ATRIAL PACEMAKER RIGHT BUNDLE BRANCH BLOCK SIMILAR 08/05/19 Electronically Signed on 04-15-2020 18:33:49 EDT by Dali Ram
== END 2020-04-15 15:54 | disposition home or self-care (01) ==
LOC: EDBD 13:01 → M ED 13:01
DX: R55 Syncope and collapse (principal); I10 Essential (primary) hypertension; I48.91 Unspecified atrial fibrillation; Z79.899 Other long term (current) drug therapy; Z88.5 Allergy status to narcotic agent; Z88.8 Allergy status to other drugs, medicaments and biological substances

== ENCOUNTER → 2021-02-09 | Outpatient (REF) | payer MEDICARE, BC ==
[~2021-02-09] MED LIST changes: +MI-A80CH PO; +ONDA8TAB10 PO; +PANT40TA29 PO; -PANT40TA3 PO; +XARE15TA PO
[2021-02-09 17:08] LABS: BASO % 0.4 % (0.0-1.0); EOS # 0.1 10^3/uL (0.0-0.5); EOS % 1.4 % (0.0-3.0); HEMATOCRIT 47.9 % (36.0-47.0); HEMOGLOBIN 15.5 g/dl (12.0-15.5); LYMPH # 1.8 10^3/uL (1.5-5.0); LYMPH % 24.6 % (24.0-44.0); MEAN CORPUSCULAR HEMOGLOBIN 30.2 pg (27.0-33.0); MEAN CORPUSCULAR HGB CONC 32.4 g/dl (32.0-36.5); MEAN CORPUSCULAR VOLUME 93.4 fl (80.0-96.0); MONO # 0.7 10^3/uL (0.0-0.8); MONO % 8.8 % (2.0-8.0); NEUTROPHILS # 4.8 10^3/uL (1.5-8.5); NEUTROPHILS % 64.4 % (36.0-66.0); PLATELET COUNT, AUTOMATED 398 10^3/uL (150-450); RED BLOOD COUNT 5.13 10^6/uL (4.00-5.40); WHITE BLOOD COUNT 7.4 10^3/uL (4.0-10.0)
[2021-02-09 17:35] LABS: ALBUMIN 4.2 GM/DL (3.2-5.2); ALT/SGPT 16 U/L (12-78); BILIRUBIN,TOTAL 0.6 MG/DL (0.2-1.0); BLOOD UREA NITROGEN 12 MG/DL (7-18); CALCIUM LEVEL 10.5 MG/DL (8.8-10.2); CARBON DIOXIDE LEVEL 29 MEQ/L (21-32); CHLORIDE LEVEL 102 MEQ/L (98-107); CREATININE FOR GFR 0.77 MG/DL (0.55-1.30); FREE T4 1.31 NG/DL (0.76-1.46); GLOMERULAR FILTRATION RATE > 60.0 (>39); GLUCOSE, FASTING 113 MG/DL (70-100); POTASSIUM SERUM 4.5 MEQ/L (3.5-5.1); SODIUM LEVEL 138 MEQ/L (136-145)
== END ==
LOC: M SFHCCLAY 13:29
PROVIDERS: ATTEND Family Medicine
DX: I48.0 Paroxysmal atrial fibrillation (principal); E89.0 Postprocedural hypothyroidism
CPT/HCPCS: 80053; 84439; 84443; 85025; G0463

== ENCOUNTER 2021-02-15 09:36 | Emergency (ER) | payer MEDICARE, BC ==
[~2021-02-15] VITALS: Ht 160 cm; Wt 65.0 kg
--- NOTE | 2021-02-15 10:22 | ECGEPIP ---
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
--- NOTE | 2021-02-15 10:51 | REP ---
INDICATION: CHEST PAIN COMPARISON: 08/05/2019 TECHNIQUE: Portable AP view of the chest FINDINGS: The mediastinum and cardiac silhouette are stable and within normal limits for portable technique. The lung meyers are clear without acute consolidation, effusion, or pneumothorax. Skeletal structures demonstrate age-related osteopenia and degenerative changes. Pacemaker in stable satisfactory position. IMPRESSION: No acute cardiopulmonary process appreciated. <Electronically signed by Colby Bernard > 02/15/21 [id number]
[2021-02-15 10:59] LABS: BASO % 0.5 % (0.0-1.0); EOS # 0.1 10^3/uL (0.0-0.5); EOS % 0.6 % (0.0-3.0); HEMATOCRIT 46.1 % (36.0-47.0); HEMOGLOBIN 15.7 g/dl (12.0-15.5); LYMPH # 1.5 10^3/uL (1.5-5.0); LYMPH % 18.8 % (24.0-44.0); MEAN CORPUSCULAR HEMOGLOBIN 31.1 pg (27.0-33.0); MEAN CORPUSCULAR HGB CONC 34.1 g/dl (32.0-36.5); MEAN CORPUSCULAR VOLUME 91.3 fl (80.0-96.0); MONO # 0.6 10^3/uL (0.0-0.8); MONO % 6.9 % (2.0-8.0); NEUTROPHILS # 5.9 10^3/uL (1.5-8.5); NEUTROPHILS % 72.7 % (36.0-66.0); PLATELET COUNT, AUTOMATED 391 10^3/uL (150-450); RED BLOOD COUNT 5.05 10^6/uL (4.00-5.40); WHITE BLOOD COUNT 8.2 10^3/uL (4.0-10.0)
[2021-02-15 11:11] LABS: INR 1.34; PROTHROMBIN TIME 16.9 SECONDS (12.5-14.3)
[2021-02-15 11:56] LABS: ALT/SGPT 15 U/L (12-78); BILIRUBIN,DIRECT 0.2 MG/DL (0.0-0.2); BILIRUBIN,TOTAL 0.6 MG/DL (0.2-1.0); BLOOD UREA NITROGEN 11 MG/DL (7-18); CALCIUM LEVEL 9.5 MG/DL (8.8-10.2); CARBON DIOXIDE LEVEL 23 MEQ/L (21-32); CHLORIDE LEVEL 106 MEQ/L (98-107); CK-MB VALUE MASS < 1.0 NG/ML (<3.6); CPK CREATINE PHOSPHOKINASE 41 U/L (26-192); CREATININE FOR GFR 0.66 MG/DL (0.55-1.30); GLOMERULAR FILTRATION RATE > 60.0 (>39); GLUCOSE, FASTING 87 MG/DL (70-100); LIPASE 64 U/L (73-393); MB/CK RELATIVE INDEX 2.44 (< OR =4); SODIUM LEVEL 139 MEQ/L (136-145); TOTAL PROTEIN 7.8 GM/DL (6.4-8.2); TROPONIN I < 0.02 NG/ML (< 0.10)
[2021-02-15] MEDS ORDERED: ISOVUE-370 76% 100ML VIAL As Ordered ONE (12:11)
--- NOTE | 2021-02-15 13:01 | REP ---
INDICATION: vertigo. COMPARISON: None. TECHNIQUE: Axial CT images with multiplanar reformations. FINDINGS: No acute bleed or acute large vessel territorial infarct. Ventricles, cisterns and sulci are within normal limits. No mass effect or midline shift. No abnormal fluid collections. Scattered ill-defined hypodensities seen throughout the white matter is most consistent with sequelae of chronic microvascular ischemic disease. Paranasal sinuses and mastoid air cells are clear IMPRESSION: No acute findings. Age-related volume loss and white matter changes. <Electronically signed by Jet Ortega > 02/15/21 [id number]
--- NOTE | 2021-02-15 13:14 | REP ---
INDICATION: vertigo, ?CVA. COMPARISON: None. TECHNIQUE: CT angiogram of the head FINDINGS: Vertebral arteries are codominant. Basilar artery and housing and residence life director are unremarkable. Internal carotid arteries are present and patent bilateral, the left being larger. Proximal and distal MCA branches are unremarkable. IMPRESSION: No limiting stenosis or occlusion. No aneurysm identified. <Electronically signed by Jet Ortega > 02/15/21 [id number]
--- NOTE | 2021-02-15 13:16 | REP ---
INDICATION: Question CVA COMPARISON: No prior similar studies TECHNIQUE: Axial CT images with multiplanar reformations with contrast FINDINGS: On the right the common and internal carotid arteries widely patent. Vertebral artery present throughout its cervical course. On the left, common and internal carotid arteries widely patent. The left vertebral artery present throughout its cervical course. IMPRESSION: Normal CT angiogram of the neck. No evidence of stenosis, occlusion or aneurysm. <Electronically signed by Jet Ortega > 02/15/21 [id number]
[2021-02-15 13:45] VITALS: BP 120/60
== END 2021-02-15 14:20 | disposition home or self-care (01) ==
LOC: M ED 09:36
DX: R42 Dizziness and giddiness (principal); E07.9 Disorder of thyroid, unspecified; Z79.899 Other long term (current) drug therapy; Z79.01 Long term (current) use of anticoagulants; Z88.5 Allergy status to narcotic agent; Z88.8 Allergy status to other drugs, medicaments and biological substances; Z95.0 Presence of cardiac pacemaker
CPT/HCPCS: 36415; 70450; 70496; 70498; 71045; 80048; 80076; 81001; 82550; 82553; 83690; 84484; 85025; 85610; 93005; 93041; 94760; 99285; Q9967

== ENCOUNTER → 2021-08-04 | Outpatient (REF) | payer MEDICARE, BC ==
[2021-08-04 11:58] LABS: HEMATOCRIT 43.8 % (36.0-47.0); HEMOGLOBIN 14.7 g/dl (12.0-15.5); MEAN CORPUSCULAR HEMOGLOBIN 31.1 pg (27.0-33.0); MEAN CORPUSCULAR HGB CONC 33.6 g/dl (32.0-36.5); MEAN CORPUSCULAR VOLUME 92.6 fl (80.0-96.0); PLATELET COUNT, AUTOMATED 356 10^3/uL (150-450); RED BLOOD COUNT 4.73 10^6/uL (4.00-5.40); WHITE BLOOD COUNT 6.2 10^3/uL (4.0-10.0)
[2021-08-04 14:10] LABS: ALT/SGPT 20 U/L (12-78); BILIRUBIN,TOTAL 0.6 MG/DL (0.2-1.0); BLOOD UREA NITROGEN 13 MG/DL (7-18); CALCIUM LEVEL 10.1 MG/DL (8.8-10.2); CARBON DIOXIDE LEVEL 27 MEQ/L (21-32); CHLORIDE LEVEL 105 MEQ/L (98-107); CHOLESTEROL LEVEL 205 MG/DL (<200); CHOLESTEROL RISK RATIO 5.125 (<5); FREE T4 1.28 NG/DL (0.76-1.46); GLOMERULAR FILTRATION RATE > 60.0 (>39); GLUCOSE, FASTING 94 MG/DL (70-100); HDL CHOLESTEROL 40 MG/DL (>40); LDL CHOLESTEROL 118 MG/DL (<100); NON-HDL-C 165 MG/DL; POTASSIUM SERUM 4.4 MEQ/L (3.5-5.1); SODIUM LEVEL 139 MEQ/L (136-145); TOTAL PROTEIN 7.7 GM/DL (6.4-8.2); TRIGLYCERIDES LEVEL 237 MG/DL (<150)
== END ==
LOC: M SFHCCLAY 07:10
PROVIDERS: ATTEND Family Medicine
DX: E03.9 Hypothyroidism, unspecified (principal); E89.0 Postprocedural hypothyroidism; I48.0 Paroxysmal atrial fibrillation

== ENCOUNTER → 2021-08-05 | Outpatient (REF) | payer MEDICARE, BC | LOC: M SFHCCLAY 13:43 | PROVIDERS: ATTEND Family Medicine | DX: E03.9 Hypothyroidism, unspecified (principal); I48.0 Paroxysmal atrial fibrillation; M50.30 Other cervical disc degeneration, unspecified cervical region; E83.52 Hypercalcemia ==

== ENCOUNTER → 2021-08-24 | Outpatient (CLI) | payer MEDICARE, BC ==
--- NOTE | 2021-08-24 16:33 | REP ---
INDICATION: M25.512 COMPARISON: None. TECHNIQUE: Three views left shoulder. FINDINGS: There is no evidence of acute fracture, dislocation, or intrinsic bone disease.There is moderate narrowing and spurring at the acromioclavicular and glenohumeral joints. There is a left pacemaker. IMPRESSION: No fracture or dislocation. Moderate degenerative changes. <Electronically signed by Hilario Caraballo > 08/24/21 [id number]
== END ==
LOC: M CLY 11:14
PROVIDERS: ATTEND Family Medicine
DX: M25.512 Pain in left shoulder (principal); Z95.0 Presence of cardiac pacemaker
CPT/HCPCS: 73030; G0463

== ENCOUNTER → 2021-11-29 | Outpatient (REF) | payer MEDICARE, BC ==
[~2021-11-29] MED LIST changes: +ONDA-84 PO; -ONDA8TAB10 PO
== END ==
LOC: M SFHCCLAY 15:19
PROVIDERS: ATTEND Family Medicine
DX: N30.01 Acute cystitis with hematuria (principal)

== ENCOUNTER → 2022-09-07 | Outpatient (REF) | payer MEDICARE, BC ==
[2022-09-07 17:18] LABS: HEMATOCRIT 42.3 % (36.0-47.0); HEMOGLOBIN 14.1 g/dl (12.0-15.5); MEAN CORPUSCULAR HEMOGLOBIN 31.3 pg (27.0-33.0); MEAN CORPUSCULAR HGB CONC 33.3 g/dl (32.0-36.5); PLATELET COUNT, AUTOMATED 345 10^3/uL (150-450); WHITE BLOOD COUNT 7.2 10^3/uL (4.0-10.0)
[2022-09-07 17:52] LABS: ALBUMIN 3.8 GM/DL (3.2-5.2); ALT/SGPT 23 U/L (12-78); BILIRUBIN,TOTAL 0.4 MG/DL (0.2-1.0); BLOOD UREA NITROGEN 11 MG/DL (7-18); CALCIUM LEVEL 9.7 MG/DL (8.8-10.2); CARBON DIOXIDE LEVEL 28 MEQ/L (21-32); CHLORIDE LEVEL 104 MEQ/L (98-107); CREATININE FOR GFR 0.78 MG/DL (0.55-1.30); FREE T4 1.15 NG/DL (0.76-1.46); GLOMERULAR FILTRATION RATE > 60.0 (>39); GLUCOSE, FASTING 95 MG/DL (70-100); SODIUM LEVEL 137 MEQ/L (136-145); TOTAL PROTEIN 7.8 GM/DL (6.4-8.2)
[2022-09-07 18:00] LABS: ERYTHROCYTE SEDIMENTATION RATE 8 mm/hr (0-30)
== END ==
LOC: M SFHCCLAY 13:44
PROVIDERS: ATTEND Family Medicine
DX: R06.09 Other forms of dyspnea (principal); R76.8 Other specified abnormal immunological findings in serum; E89.0 Postprocedural hypothyroidism

== ENCOUNTER → 2022-09-07 | Outpatient (CLI) | payer MEDICARE, BC | LOC: M CLY 14:44 | PROVIDERS: ATTEND Family Medicine | DX: R06.09 Other forms of dyspnea (principal) ==

== ENCOUNTER → 2023-03-15 | Outpatient (REF) | payer MEDICARE, BC | LOC: M SFHCCLAY 13:46 | PROVIDERS: ATTEND Family Medicine | DX: N81.10 Cystocele, unspecified (principal); Z79.899 Other long term (current) drug therapy ==

== ENCOUNTER → 2023-09-12 | Outpatient (REF) | payer MEDICARE, BC ==
[2023-09-12 18:58] LABS: HEMATOCRIT 44.5 % (36.0-47.0); HEMOGLOBIN 14.6 g/dl (12.0-15.5); MEAN CORPUSCULAR HEMOGLOBIN 31.5 pg (27.0-33.0); MEAN CORPUSCULAR HGB CONC 32.8 g/dl (32.0-36.5); MEAN CORPUSCULAR VOLUME 95.9 fl (80.0-96.0); PLATELET COUNT, AUTOMATED 349 10^3/uL (150-450); RED BLOOD COUNT 4.64 10^6/uL (4.00-5.40); WHITE BLOOD COUNT 5.9 10^3/uL (4.0-10.0)
[2023-09-12 19:16] LABS: ALBUMIN 3.9 G/DL (3.2-5.2); ALKALINE PHOSPHATASE 75 U/L (46-116); ALT/SGPT 11 U/L (7.0-40); AST/SGOT 14 U/L (<34); BILIRUBIN,TOTAL 0.5 MG/DL (0.3-1.2); BLOOD UREA NITROGEN 13 MG/DL (9-23); CALCIUM LEVEL 9.6 MG/DL (8.3-10.6); CARBON DIOXIDE LEVEL 26 MMOL/L (20-31); CHLORIDE LEVEL 103 MMOL/L (98-107); CHOLESTEROL LEVEL 202 MG/DL (<200); CHOLESTEROL RISK RATIO 5.97 (<5); CREATININE FOR GFR 0.58 MG/DL (0.55-1.30); GLOMERULAR FILTRATION RATE > 60.0 (>39); GLUCOSE, FASTING 107 MG/DL (74-106); HDL CHOLESTEROL 33.8 MG/DL (>40); NON-HDL-C 168.2 MG/DL; POTASSIUM SERUM 3.9 MMOL/L (3.5-5.1); SODIUM LEVEL 138 MMOL/L (136-145); THYROID STIMULATING HORMONE 5.047 uIU/ML (0.55-4.78); TOTAL PROTEIN 7.2 G/DL (5.7-8.2); TRIGLYCERIDES LEVEL 409 MG/DL (<150)
== END ==
LOC: M SFHCCLAY 13:24
PROVIDERS: ATTEND Family Medicine
DX: R06.09 Other forms of dyspnea (principal); R76.8 Other specified abnormal immunological findings in serum; E89.0 Postprocedural hypothyroidism; E78.2 Mixed hyperlipidemia

== ENCOUNTER → 2024-03-12 | Outpatient (REF) | payer MEDICARE, BC ==
[2024-03-12 18:27] LABS: HEMATOCRIT 41.8 % (36.0-47.0); MEAN CORPUSCULAR HEMOGLOBIN 31.6 pg (27.0-33.0); MEAN CORPUSCULAR HGB CONC 33.5 g/dl (32.0-36.5); MEAN CORPUSCULAR VOLUME 94.4 fl (80.0-96.0); PLATELET COUNT, AUTOMATED 327 10^3/uL (150-450); RED BLOOD COUNT 4.43 10^6/uL (4.00-5.40); WHITE BLOOD COUNT 7.2 10^3/uL (4.0-10.0)
[2024-03-12 18:55] LABS: ALBUMIN 3.7 G/DL (3.2-5.2); ALKALINE PHOSPHATASE 74 U/L (46-116); ALT/SGPT 14 U/L (7.0-40); AST/SGOT 16 U/L (<34); BILIRUBIN,TOTAL 0.5 MG/DL (0.3-1.2); BLOOD UREA NITROGEN 15 MG/DL (9-23); CALCIUM LEVEL 9.6 MG/DL (8.3-10.6); CARBON DIOXIDE LEVEL 26 MMOL/L (20-31); CHLORIDE LEVEL 103 MMOL/L (98-107); CREATININE FOR GFR 0.59 MG/DL (0.55-1.30); GLOMERULAR FILTRATION RATE > 60.0 (>32); GLUCOSE, FASTING 95 MG/DL (74-106); SODIUM LEVEL 137 MMOL/L (136-145); TOTAL PROTEIN 6.8 G/DL (5.7-8.2)
[2024-03-12 18:57] LABS: THYROID STIMULATING HORMONE 1.455 uIU/ML (0.55-4.78)
== END ==
LOC: M SFHCCLAY 13:34
PROVIDERS: ATTEND Family Medicine
DX: R06.09 Other forms of dyspnea (principal); R76.8 Other specified abnormal immunological findings in serum; E89.0 Postprocedural hypothyroidism

== ENCOUNTER 2024-06-06 11:37 | Emergency (ER) | payer OTHER, MEDICARE, BC ==
[~2024-06-06] VITALS: Ht 162.6 cm; Wt 64.5 kg
[2024-06-06 11:50] VITALS: TEMP 98.6
[2024-06-06] MEDS: ACETAMINOPHEN 500 MG TAB PO ONE (13:18)
[2024-06-06 14:30] VITALS: BP 169/75; O2SAT 95
== END 2024-06-06 15:09 | disposition home or self-care (01) ==
LOC: M ED 11:37 → EDBD 11:37 → M ED 15:09
DX: S00.93XA Contusion of unspecified part of head, initial encounter (principal); Y92.511 Restaurant or cafe as the place of occurrence of the external cause; Y93.9 Activity, unspecified; Y99.9 Unspecified external cause status; W51.XXXA Accidental striking against or bumped into by another person, initial encounter; E03.9 Hypothyroidism, unspecified; Z88.5 Allergy status to narcotic agent; Z88.8 Allergy status to other drugs, medicaments and biological substances; Z79.899 Other long term (current) drug therapy

== ENCOUNTER → 2024-06-12 | Outpatient (CLI) | payer MEDICARE, BC | LOC: M CLY 15:02 | PROVIDERS: ATTEND Family Medicine | DX: M54.50 Low back pain, unspecified (principal); M85.80 Other specified disorders of bone density and structure, unspecified site ==

== ENCOUNTER → 2024-06-12 | Outpatient (CLI) | payer MEDICARE, BC | LOC: M CLY 14:18 | PROVIDERS: ATTEND Family Medicine | DX: M54.50 Low back pain, unspecified (principal); R07.81 Pleurodynia; M16.0 Bilateral primary osteoarthritis of hip; M51.36 Other intervertebral disc degeneration, lumbar region; M51.37 Other intervertebral disc degeneration, lumbosacral region ==

== ENCOUNTER → 2024-09-11 | Outpatient (CLI) | payer MEDICARE, BC | LOC: M SOG 07:50 | PROVIDERS: ATTEND Physician Assistant | DX: S22.060A Wedge compression fracture of T7-T8 vertebra, initial encounter for closed fracture (principal); W18.30XA Fall on same level, unspecified, initial encounter; Y92.009 Unspecified place in unspecified non-institutional (private) residence as the place of occurrence of the external cause ==

== ENCOUNTER → 2025-10-14 | Outpatient (REF) | payer MEDICARE, BC ==
[2025-10-14 18:18] LABS: FREE T4 1.66 NG/DL (0.89-1.76)
== END ==
LOC: M SFHCCLAY 10:48
PROVIDERS: ATTEND Physician Assistant
DX: Z00.00 Encounter for general adult medical examination without abnormal findings (principal); E03.9 Hypothyroidism, unspecified